=== PATIENT | female | born 1980 | race African-American/Black ===

== ENCOUNTER 2020-03-18 17:26 | Emergency (ER) | payer BC ==
[~2020-03-18] VITALS: Ht 172.7 cm; Wt 48.0 kg
[2020-03-18 17:40] VITALS: BP 137/93
[2020-03-18] MEDS ORDERED: OXYC1TAB15 PO (18:35)
[2020-03-18] MEDS ORDERED: PENI500T PO (18:35)
--- NOTE | 2020-03-18 18:35 | PHYS DOC ---
Past Medical History Past Medical History: No Pertinent History Additional Past Medical Histor: MVP Past Surgical History: No Surgical History Smoking Status: Current Every Day Smoker Alcohol Use: None Drug Use: None General Adult EDM: Chief Complaint: DENTAL PROBLEM HPI: HPI: Patient is a 39 year old female who presents with right facial swelling with dental pain for 2 days. She denies nausea or vomiting or fever. She states that she does have a dentist but did not up until tomorrow. She agrees to call and get follow-up tomorrow or as soon as possible. Rates her pain a 10 out of 10. She states that the pain is giving her headache. Review of Systems: Review of Systems: HENT: Denies nasal congestion or sore throat. Right facial swelling with right upper dental caries and pain. [] Heart Score: Risk Factors: Risk Factors: DM, Current or recent (<one month) smoker, HTN, HLP, family history of CAD, obesity. Risk Scores: Score 0 - 3: 2.5% MACE over next 6 weeks - Discharge Home Score 4 - 6: 20.3% MACE over next 6 weeks - Admit for Clinical Observation Score 7 - 10: 72.7% MACE over next 6 weeks - Early Invasive Strategies Allergies: Allergies: Allergies Coded Allergies Type Severity Reaction Last Updated Verified No Known Drug Allergies 12/02/15 No Physical Exam: PE: Constitutional: Well developed, well nourished, no acute distress, non-toxic appearance. [] HENT: Normocephalic, atraumatic, bilateral external ears normal, oropharynx moist, no oral exudates, nose normal. Right upper dental caries and broken teeth some of which look to be rotting. Gumline is red and swollen and tender with palpation. 2+ right facial swelling. [] Eyes: PERRLA, EOMI, conjunctiva normal, no discharge. [] Neck: Normal range of motion, no tenderness, supple, no stridor. [] Cardiovascular:Heart rate regular rhythm, no murmur [] Lungs & Thorax: Bilateral breath sounds clear to auscultation [] Abdomen: Bowel sounds normal, soft, no tenderness, no masses, no pulsatile masses. [] Skin: Warm, dry, no erythema, no rash. [] Back: No tenderness, no CVA tenderness. [] Extremities: No tenderness, no cyanosis, no clubbing, ROM intact, no edema. [] Neurologic: Alert and oriented X 3, normal motor function, normal sensory function, no focal deficits noted. [] Psychologic: Affect normal, judgement normal, mood normal. [] Current Patient Data: Vital Signs: Vital Signs Date Time Temp Pulse Resp B/P (MAP) Pulse Ox O2 Delivery O2 Flow Rate FiO2 03/18/20 17:40 99.0 78 20 137/93 (108) 99 Room Air 99.0 EKG: EKG: [] Radiology/Procedures: Radiology/Procedures: [] Course & Med Decision Making: Course & Med Decision Making Pertinent Labs and Imaging studies reviewed. (See chart for details) Patient states she is been taking [id number] migraine medication but is not helping her pain. She is alert and oriented. Speaks in full clear sentences. No trismus. Patient has right upper broken teeth with tender gumline and many dental caries. Ambulatory with a steady gait. Facial swelling on the right side is 2+. Patient denies fever. She is afebrile. [] Dragon Disclaimer: Manda Disclaimer: This electronic medical record was generated, in whole or in part, using a voice recognition dictation system. Departure Departure Impression: Primary Impression: Dental abscess Disposition: HOME, SELF-CARE Condition: STABLE Referrals: NO PCP (PCP) Patient Instructions: Dental Abscess Additional Instructions: Call your dentist tomorrow get him to be seen. Take medications as prescribed and with food. Do not operate any heavy machinery while you are on pain medication or drink alcohol. Drink plenty of fluids. Do not take more Tylenol with the pain medication but you may take Advil or ibuprofen with the pain medication. Scripts Penicillin V Potassium (PENICILLIN V POTASSIUM) 500 Mg Tablet 1 TAB PO QID, #40 TAB Prov: NIEVES SEPULVEDA [employer]ESSION[employer] NURSING [employer]OR 03/18/20 Oxycodone/Apap 5-325 (PERCOCET 5-325 MG TABLET ) 1 Each Tablet 1 TAB PO PRN Q6HRS PRN for PAIN, #12 TAB 0 Refills Prov: NIEVES SEPULVEDA PROFESSIONAL NURSING T[employer]OR 03/18/20 NIEVES SEPULVEDA PROFESSION[employer] NURSING TUTOR Mar 18, 2020 18:35
== END 2020-03-18 18:40 | disposition home or self-care (01) ==
LOC: ER 17:26
DX: K04.7 Periapical abscess without sinus (principal); K08.89 Other specified disorders of teeth and supporting structures; R60.0 Localized edema; R51 Headache; F17.200 Nicotine dependence, unspecified, uncomplicated
CPT/HCPCS: 99283